=== PATIENT | male | born 1970 | race Caucasian/White ===

== ENCOUNTER 2016-03-22 09:52 | Emergency (ER) | payer SELFPAY ==
[~2016-03-22] VITALS: Ht 188 cm; Wt 108.9 kg
--- NOTE | 2016-03-22 11:28 | RAD ---
Chest, 2 views, 03/22/2016: History: Shortness of breath, cough The heart size and pulmonary vascularity are normal. No pulmonary infiltrates are seen. There is no evidence of pleural fluid. IMPRESSION: No acute cardiopulmonary abnormality is detected.
[2016-03-22] MEDS ORDERED: PROAIR HFA8.5 GM INH (11:34)
[2016-03-22] MEDS ORDERED: PRED20TA PO (11:34)
[2016-03-22] MEDS ORDERED: AZIT250T PO (11:34)
--- NOTE | 2016-03-22 11:34 | PHYS DOC ---
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 He reports subjective fever and nasal congestion as well. He denies sore throat, ear pain, or GI complaints. He does not currently have a PCP. Review of Systems Review of Systems Constitutional: Reports subjective fever. Eyes: Denies change in visual acuity, redness, or eye pain. [] HENT: Denies ear pain or sore throat. Reports nasal congestion. Respiratory: Reports productive cough and shortness of breath. Cardiovascular: Denies chest pain, palpitations or edema. [] GI: Denies abdominal pain, nausea, vomiting, bloody stools or diarrhea. [] : Denies dysuria, hematuria or urinary frequency. [] Musculoskeletal: Denies back pain or joint pain. [] Integument: Denies rash or skin lesions. [] Neurologic: Denies headache, focal weakness or sensory changes. [] Endocrine: Denies polyuria or polydipsia. [] Psych: Denies anxiety or depression. [] All systems reviewed and negative unless otherwise stated in the HPI. Allergies Allergies Allergies Coded Allergies Type Severity Reaction Last Updated Verified No Known Drug Allergies 03/22/16 No Physical Exam Physical Exam Constitutional: Well developed, well nourished, no acute distress, non-toxic appearance. [] HENT: Normocephalic, atraumatic, bilateral external ears normal, oropharynx moist, no oral exudates, nose normal. Bilateral TMs without erythema or bulging. There is no posterior pharyngeal erythema or tonsillar edema. Bilateral nasal turbinates are swollen and erythematous with purulent drainage. Eyes: PERRLA, EOMI, conjunctiva normal, no discharge. [] Neck: Normal range of motion, no tenderness, supple, no stridor. [] Cardiovascular: Heart rate regular rhythm, no murmur [] Lungs & Thorax: Coarse rhonchi with expiration diffusely without wheezes or rales. The patient is not in respiratory distress. Skin: Warm, dry, no erythema, no rash. [] Neurologic: Alert and oriented X 3, normal motor function, normal sensory function, no focal deficits noted. [] Psychologic: Affect normal, judgement normal, mood normal. [] Current Patient Data Vital Signs Vital Signs Date Time Temp Pulse Resp B/P Pulse Ox O2 Delivery O2 Flow Rate FiO2 03/22/16 10:04 98.3 100 18 141/82 94 Room Air 98.3 EKG EKG [] Radiology/Procedures Radiology/Procedures REASON: cough, soa PROCEDURE: CHEST PA & LATERAL Chest, 2 views, 03/22/2016: History: Shortness of breath, cough The heart size and pulmonary vascularity are normal. No pulmonary infiltrates are seen. There is no evidence of pleural fluid. IMPRESSION: No acute cardiopulmonary abnormality is detected. Course & Med Decision Making Course & Med Decision Making Pertinent Labs and Imaging studies reviewed. (See chart for details) [] Dragon Disclaimer Dragon Disclaimer This electronic medical record was generated, in whole or in part, using a voice recognition dictation system. Departure Departure Impression: Primary Impression: Bronchitis Disposition: 01 HOME, SELF-CARE Condition: STABLE Referrals: NO PCP (PCP) Patient Instructions: Acute Bronchitis, [id number] Additional Instructions: Your chest x-ray does not show any sign of pneumonia. Please take all the prescribed medication as directed. Please follow-up with a primary care provider if your symptoms continue. Return to the emergency department if you have any new or concerning symptoms. Scripts Azithromycin (Zithromax)250 Mg Tablet1 Pkg PO UD #6 TAB Prov:MELO MONTENEGRO 03/22/16 Prednisone 20 Mg Clpors21 Mg PO DAILY 5 Days Prov:MELO MONTENEGRO 03/22/16 Albuterol Sulfate (Proair Hfa Inhaler)8.5 Gm [id number] Puff INH Q4HRS PRN SHORTNESS OF BREATH #1 INHALER Prov:MELO MONTENEGRO 03/22/16 MELO MONTENEGRO Mar 22, 2016 11:34
[2016-03-22 11:40] VITALS: BP 137/79
== END 2016-03-22 11:42 | disposition home or self-care (01) ==
LOC: ER 09:52
DX: J40 Bronchitis, not specified as acute or chronic (principal); R50.9 Fever, unspecified; F17.200 Nicotine dependence, unspecified, uncomplicated
CPT/HCPCS: 71020; 99284